=== PATIENT | male | born 1965 | race African-American/Black ===

== ENCOUNTER 2024-07-29 07:32 | Emergency (ER) | payer MEDICAID ==
[~2024-07-29] VITALS: Ht 185.4 cm; Wt 79.0 kg
[2024-07-29 08:50] LABS: Basophils # (auto) 0.1 10 ^3/uL (0-0.2); Basophils % (auto) 0.6 % (0.0-2.0); Eosinophils # (auto) 0.2 10 ^3/uL (0-0.8); Hematocrit 50.9 % (41.0-53.0); Lymphocytes # (auto) 1.8 10 ^3/uL (0.4-5.4); Mean Corpuscular Hemoglobin 29.5 pg (28.0-32.0); Mean Corpuscular Hgb Conc. 33.3 g/dL (32.0-36.0); Mean Corpuscular Volume 88.4 fL (80.0-100.0); Monocytes # (auto) 0.4 10 ^3/uL (0-1.3); Monocytes % (auto) 5.4 % (0.0-12.0); Neutrophils # (auto) 5.5 10 ^3/uL (1.6-8.6); Nucleated Red Blood Cells % 0.1 %; Platelet Count (auto) 127 10^3/uL (140-450); Red Blood Cells 5.75 10^6/uL (4.5-5.90); Red Cell Distribution Width 14.5 % (11.8-14.3)
[2024-07-29 09:07] LABS: BUN/Creatinine Ratio 13.1 (10.0-20.0); Blood Urea Nitrogen 23 mg/dL (9-23); Glucose 381 mg/dL (74-106)
[2024-07-29 09:08] LABS: Chloride 103 mmol/L (98-107); Potassium 5.5 mmol/L (3.5-5.1); Sodium 134 mmol/L (136-145)
[2024-07-29 09:11] LABS: Anion Gap 11 (5-15); Calcium 10.1 mg/dL (8.7-10.4); Carbon Dioxide 20 mmol/L (20-30)
[2024-07-29] MEDS: HYDROcodone-ACET 10/325MG TAB PO ONE (09:27)
[2024-07-29] MEDS: KETOROLAC TROMETH 60MG/2ML VIAL IM ONE (09:27)
[2024-07-29] MEDS: BACLOFEN 10 MG TAB PO ONE (09:28)
[2024-07-29] MEDS: SODIUM ZIRCONIUM CYCL 10 GM PAK PO ONE (11:30)
[2024-07-29] MEDS: ALBUTEROL SULF 2.5 MG/0.5ML(0.5%) NEB SOLN NEB ONE (11:30)
[2024-07-29] MEDS: SODIUM CHLORIDE 0.9% 500 ML IV ONE (11:45)
[2024-07-29] MEDS: FUROSEMIDE 20 MG/2 ML VIAL IV ONE (11:54)
[2024-07-29 12:12] VITALS: RESP 18; O2SAT 95
[2024-07-29 15:04] LABS: Chloride 101 mmol/L (98-107); Potassium 4.5 mmol/L (3.5-5.1); Sodium 135 mmol/L (136-145)
[2024-07-29 15:05] LABS: Anion Gap 11 (5-15); Calcium 10.1 mg/dL (8.7-10.4); Carbon Dioxide 23 mmol/L (20-30)
[2024-07-29 15:10] LABS: BUN/Creatinine Ratio 11.4 (10.0-20.0); Blood Urea Nitrogen 20 mg/dL (9-23); Glucose 327 mg/dL (74-106)
[2024-07-29] MEDS ORDERED: GLUC-105 VI (16:08)
[2024-07-29] MEDS ORDERED: HYDR1TAB97 PO (16:08)
[2024-07-29 16:16] VITALS: BP 146/94; PULSE 77; RESP 17; TEMP 98.9; O2SAT 98
== END 2024-07-29 16:18 | disposition home or self-care (01) ==
LOC: ER 07:32
DX: E87.5 Hyperkalemia (principal); N17.9 Acute kidney failure, unspecified; M54.6 Pain in thoracic spine; G89.29 Other chronic pain; Z79.899 Other long term (current) drug therapy
CPT/HCPCS: 36415; 71046; 80048; 83880; 84484; 85025; 94640; 96361; 96372; 96374; 99285; J1885; J1940; J7040

== ENCOUNTER 2025-07-10 10:00 | Emergency (ER) | payer MEDICAID, OTHER ==
[~2025-07-10] VITALS: Ht 185.4 cm; Wt 84.7 kg
[~2025-07-10 10:00] MED LIST: GLUC-105 VI; HYDR1TAB97 PO
[2025-07-10] MEDS ORDERED: IBUP1TAB5 PO (11:06)
[2025-07-10] MEDS ORDERED: CYCL-837 PO (11:06)
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
[2025-07-10 12:02] VITALS: BP 149/89; PULSE 87; RESP 16; TEMP 98.9; O2SAT 98
== END 2025-07-10 12:04 | disposition home or self-care (01) ==
LOC: ER 10:00
DX: M54.50 Low back pain, unspecified (principal); Z79.899 Other long term (current) drug therapy; V89.2XXA Person injured in unspecified motor-vehicle accident, traffic, initial encounter; Y93.89 Activity, other specified; Y92.488 Other paved roadways as the place of occurrence of the external cause; Y99.8 Other external cause status
CPT/HCPCS: 72100

== ENCOUNTER 2025-10-13 06:18 | Inpatient (IN) | payer MEDICAID ==
[~2025-10-13] VITALS: Ht 185.4 cm; Wt 85.3 kg
[~2025-10-13 06:18] MED LIST changes: +CYCL-837 PO; +IBUP1TAB5 PO
--- NOTE | 2025-10-13 06:36 | ED.PDOC ---
SOB-HPI HPI Comments This is a 60 year-old male, with a Hx of COPD and Asthma, who presents to the ED with a chief complaint of SOB for X2 weeks. Patient reports having a lobectomy done after his lungs collapsed from COVID-19. Patient denies any social history of smoking or ETOH ingestion. Patient has no further complaints at this time and otherwise denies further symptoms of dizziness, weakness, fatigue, back pain, chest pain, or palpitations. Chief Complaint: Shortness of Breath Time Seen by MD: 06:30 Reviewed notes: Medications, Allergies Information Source: Patient Mode of Arrival: Ambulatory Severity: Moderate Timing: Weeks Duration: Since onset Context: At Rest, With Light Exertion, With Heavy Exertion History of: Asthma, COPD Past Medical History PAST MEDICAL HISTORY: Asthma, COPD, DM Surgical History: Denies all surgeries Family History Family History: Reviewed,noncontributory to illness, No family hx of Cancer, No family hx of DM, No family hx of Heart giovanni, No family hx of HTN, No family hx ofKidney giovanni, No family hx of Liver giovanni, No family hx of Lung giovanni, No family hx of Stroke Social History Smoker: Non-Smoker Alcohol: Denies ETOH Use Drugs: Denies Drug Use Lives In: Home Constitutional: denies: chills, diaphoresis, fatigue, fever, malaise, sweats, weakness, others EENTM: denies: blurred vision, double vision, ear bleeding, ear discharge, ear drainage, ear pain, ear ringing, eye pain, eye redness, hearing loss, mouth pain, mouth swelling, nasal discharge, nose bleeding, nose congestion, nose pain, photophobia, tearing, throat pain, throat swelling, voice changes, others Respiratory: reports: SOB at rest, shortness of breath, SOB with excertion; denies: cough, hemoptysis, orthopnea, stridor, wheezing, others Cardiovascular: denies: chest pain, dizzy spells, diaphoresis, Dyspnea on exertion, edema, irregular heart beat, left arm pain, lightheadedness, palpitations, PND, syncope, others Gastrointestinal: denies: abdomen distended, abdominal pain, blood streaked bowels, constipated, diarrhea, dysphagia, difficulty swallowing, hematemesis, melena, nausea, poor appetite, poor fluid intake, rectal bleeding, rectal pain, vomiting, others Genitourinary: denies: burning, dysuria, flank pain, frequency, hematuria, incontinence, penile discharge, penile sore, pain, testicle pain, testicle swelling, urgency, others Neurological: denies: dizziness, fainting, headache, left sided numbness, left sided weakness, numbness, paresthesia, pre-existing deficit, right sided numbness, right sided weakness, seizure, speech problems, tingling, tremors, weakness, others Musculoskeletal: denies: back pain, gout, joint pain, joint swelling, muscle pain, muscle stiffness, neck pain, others Integumetry: denies: bruises, change in color, change in hair/nails, dryness, laceration, lesions, lumps, rash, wounds, others Allergic/Immunocompromised: denies: Difficulty Healing, Frequent Infections, Hives, Itching, others Hematologic/Lymphatic: denies: anemia, blood clots, easy bleeding, easy bruising, swollen glands, others Endocrine: denies: excessive hunger, excessive sweating, excessive thirst, excessive urination, flushing, intolerance to cold, intolerance to heat, unexplained weight gain, unexplained weight loss, others Psychiatric: denies: anxiety, bipolar disorder, depression, hopeless, panic disorder, schizophrenia, sleepless, suicidal, others All Other Systems: Reviewed and Negative Physical Exam General Appearance: Moderate Distress HEENT: Normal ENT Inspection, Pharynx Normal, TMs Normal Neck: Full Range of Motion, Non-Tender, Normal, Normal Inspection Respiratory: Chest Non-Tender, Lungs Clear, No Accessory Muscle Use, No Respiratory Distress, Normal Breath Sounds Cardiovascular: No Edema, No JVD, No Murmur, No Gallop, Normal Peripheral Pulses, Regular Rate/Rhythm Breast Exam: Deferred Gastrointestinal: No Organomegaly, Non Tender, No Pulsatile Mass, Normal Bowel Sounds, Soft Genitalia: Deferred Pelvic: Deferred Rectal: Deferred Extremities: No calf tenderness, Normal capillary refill, Normal inspection, Normal range of motion, Non-tender, No pedal edema Musculoskeletal : Apperance: Normal Neurologic: Alert, primary care pediatrician II-XII nml as Tested, No Motor Deficits, Normal Affect, Normal Mood, No Sensory Deficits Cerebellar Function: Normal Reflexes: Normal Skin: Dry, Normal Color, Warm Peripheral Pulses: 3+ Radial (R), 3+ Radial (L) Lymphatic: No Adenopathy Was a procedure done? Was a procedure done?: No Differential Dx Differential Diagnosis: Anxiety, Asthma, Bronchitis, COPD, Panic Attack, Sinusitis, Allergic Rhinitis X-Ray, Labs, Meds, VS Vital Signs Date Time Temp Pulse Resp B/P (MAP) Pulse Ox O2 Delivery O2 Flow Rate FiO2 10/13/25 08:53 97.8 70 16 151/105 (120) 98 97.8 10/13/25 06:19 97.8 70 20 139/93 97 97.8 Lab Test 10/13/25 06:46 Range/Units Sodium Level 145 136-145 mmol/L Potassium Level 5.3 H 3.5-5.1 mmol/L Chloride Level 109 H 98-107 mmol/L Carbon Dioxide Level 27 20-31 mmol/L Anion Gap 9 5-15 Blood Urea Nitrogen 27 H 9-23 mg/dL Creatinine 1.87 H 0.700-1.30 mg/dL Glomerular Filtration Rate Calc 40 >90 mL/min BUN/Creatinine Ratio 14.4 10.0-20.0 Serum Glucose 73 L 74-106 mg/dL Calcium Level 10.3 8.7-10.4 mg/dL Patient alert. Complaining of shortness a breath. No leg swelling. Vitals stable. Saturation pristine on room air. Heart rate within normal limits. No sign of any acute process. Possible pneumonitis. Potassium is elevated. Was given Rocephin. Was given azithromycin. Was given clonidine. Explained to the patient. Continue monitoring. Time of 1ST Reevaluation: 07:27 Reevaluation 1ST: Unchanged Patient Education/Counseling: Diagnosis, Treatment Family Education/Counseling: No Family Present SEPSIS Sepsis Screen Date sepsis recognized/suspect: Oct 13, 2025 Time Sepsis recognized/suspect: 619 Recent Procedure: No On Antibiotic Therapy: No Respiratory Rate >20: No Heart Rate >90: No Temp<36 C (96.8 F) or >38.3 C: No SBP <90 or MAP <65 mmHG: No New Acute Mental Status Change: No Is the patient on CPAP, BIPAP,: No Physician Orders Chest Portable (10/13/25 06:31) Vital Signs Date Time Temp Pulse Resp B/P (MAP) Pulse Ox O2 Delivery O2 Flow Rate FiO2 10/13/25 08:53 97.8 70 16 151/105 (120) 98 97.8 10/13/25 06:19 97.8 70 20 139/93 97 97.8 Departure 1 Departure Time of Disposition: 06:38 Impression: Primary Impression: Hyperkalemia Additional Impressions: Pneumonitis Hypertensive urgency Disposition: ADMITTED INPATIENT Admit to: Med Surg Condition: Guarded Critical Care Note Critical Care Time?: Yes (90 min-critical care time only) Stability Stability form required: No Heart Score Heart Score: Heart Score Response (Comments) Value History Slightly Suspicious 0 EKG N/A 0 Age 45-64 1 Risk Factors 1 or 2 risk factors 1 Troponin N/A 0 Total 2 I personally scribed for BIB MACHADO MD ([email or web address]) on 10/13/25 at 06:36. Electronically submitted by Roxane Leone ([facility]). BIB MACHADO MD Oct 13, 2025 06:36
[2025-10-13 07:11] LABS: Anion Gap 9 (5-15); Calcium 10.3 mg/dL (8.7-10.4); Carbon Dioxide 27 mmol/L (20-31)
[2025-10-13 07:12] LABS: Chloride 109 mmol/L (98-107); Potassium 5.3 mmol/L (3.5-5.1); Sodium 145 mmol/L (136-145)
[2025-10-13 07:16] LABS: BUN/Creatinine Ratio 14.4 (10.0-20.0)
--- NOTE | 2025-10-13 07:18 | DVH ---
CHEST RADIOGRAPH Indication: sob Technique: Single frontal view of the chest was obtained COMPARISON: XY CHEST TWO VIEWS ROUTINE on DOS: 07/29/24 FINDINGS: Lines and Tubes: None Lungs: Increased interstitial prominence. This may represent pulmonary vascular congestion and/or viral pneumonia. Pleura: No effusion.No pneumothorax. Cardiomediastinal contours: Unremarkable Bones: Unremarkable IMPRESSION: Increased interstitial prominence. This may represent pulmonary vascular congestion and/or viral pneumonia.
[2025-10-13 07:19] LABS: Blood Urea Nitrogen 27 mg/dL (9-23); Glucose 73 mg/dL (74-106)
[2025-10-13 08:53] VITALS: BP 151/105; PULSE 70; TEMP 97.8
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
[2025-10-13] MEDS ORDERED: NITROGLYCERIN 0.4 MG SL TAB SL PRN (09:30)
[2025-10-13] MEDS ORDERED: DEXTROSE (50%) 50ML SYRG IV ONE (09:30)
[2025-10-13] MEDS ORDERED: CALCIUM GLUC 1,000mg/50ml-NS 50 ML IV ONE ×2 (09:30)
[2025-10-13] MEDS ORDERED: SODIUM BICARB 8.4% 50Meq/50ml SYR INJ IV ONE (09:30)
[2025-10-13] MEDS ORDERED: ACETAMINOPHEN 325 MG TAB PO PRN (09:30)
[2025-10-13] MEDS ORDERED: FUROSEMIDE 20 MG/2 ML VIAL IV ONE (09:30)
[2025-10-13] MEDS ORDERED: AZITHROMYCIN 500MG/250ML 250 ML IV ONE ×2 (09:30)
[2025-10-13] MEDS ORDERED: methylPREDNISolone SOD SUCC 40 MG/ML VL IV ONE (09:30)
[2025-10-13] MEDS ORDERED: ONDANSETRON HCL 4 MG/2 ML VIAL IV PRN (09:30)
[2025-10-13] MEDS ORDERED: MORPHINE SULFATE INJ 2 MG/ml SYRG IV PRN ×2 (09:30)
[2025-10-13] MEDS ORDERED: ALBUTEROL SULF 2.5 MG/0.5ML(0.5%) NEB SOLN NEB ONE (09:30)
[2025-10-13] MEDS ORDERED: InsuLIN REG 1unit/0.01ml Soln (100units/ml) IV ONE (09:30)
[2025-10-13] MEDS ORDERED: SODIUM ZIRCONIUM CYCL 10 GM PAK PO ONE ×2 (09:30)
[2025-10-13] MEDS ORDERED: ALBUTEROL SULF 2.5 MG/0.5ML(0.5%) NEB SOLN ONE (09:35)
[2025-10-13 09:41] LABS: Hematocrit 49.8 % (41.0-53.0); Hemoglobin 16.3 g/dL (13.5-17.5); Mean Corpuscular Hemoglobin 29.2 pg (28.0-32.0); Mean Corpuscular Volume 88.8 fL (80.0-100.0); Nucleated Red Blood Cells % 0.1 %
[2025-10-13] MEDS: ALBUTEROL SULF 2.5 MG/0.5ML(0.5%) NEB SOLN NEB ONE (09:41)
[2025-10-13 09:48] LABS: Magnesium 2.0 mg/dL (1.6-2.6); Triglycerides 135.0 mg/dL (< 150)
[2025-10-13 09:50] LABS: Cholesterol 169.0 mg/dL (< 200)
[2025-10-13 09:51] LABS: HDL Cholesterol 40.0 mg/dL (40-59)
[2025-10-13] MEDS ORDERED: SODIUM CHLORIDE 0.9% 1,000 ML IV SCH (10:00)
[2025-10-13] MEDS ORDERED: DEXTROSE (50%) 50ML SYRG IV PRN (10:00)
[2025-10-13] MEDS ORDERED: SODIUM CHLORIDE 0.9% 500 ML IV ONE (10:00)
[2025-10-13 10:01] LABS: INR 1.0 (0.9-1.15); Partial Thromboplastin Time 29.5 SEC (24.5-34.5); Prothrombin Time 10.6 sec (9.3-11.8)
[2025-10-13 10:02] VITALS: RESP 18; O2SAT 100
--- NOTE | 2025-10-13 10:21 | DVH ---
CLINICAL HISTORY: BLANK TECHNIQUE: Complete ultrasound exam of the kidneys and bladder was performed. COMPARISON: None FINDINGS: The right kidney has normal echogenicity and measures 9.2 cm. There is no focal parenchymal abnormality or evidence for stone. There is no hydronephrosis. The left kidney has normal echogenicity and measures 11.6 cm. There is no focal parenchymal abnormality or evidence for stone. There is no hydronephrosis. The bladder is grossly unremarkable. IMPRESSION: NO SIGNIFICANT SONOGRAPHIC ABNORMALITY OF THE KIDNEYS.
[2025-10-13 10:30] LABS: Potassium 4.7 mmol/L (3.5-5.1); Sodium 142 mmol/L (136-145)
[2025-10-13 10:31] LABS: Anion Gap 8 (5-15); Calcium 9.7 mg/dL (8.7-10.4); Carbon Dioxide 26 mmol/L (20-31)
[2025-10-13 10:35] LABS: Chloride 108 mmol/L (98-107)
[2025-10-13 10:36] LABS: BUN/Creatinine Ratio 14.7 (10.0-20.0); Blood Urea Nitrogen 24 mg/dL (9-23); Glucose 78 mg/dL (74-106)
[2025-10-13] MEDS ORDERED: ACCU-CHEK COMFORT CURVE STRIP VI SCH (11:30)
[2025-10-13] MEDS ORDERED: InsuLIN REG 1unit/0.01ml Soln (100units/ml) SC SCH (11:30)
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
[2025-10-13] MEDS ORDERED: methylPREDNISolone SOD SUCC 40 MG/ML VL IV SCH (22:00)
[2025-10-14] MEDS ORDERED: AZITHROMYCIN 500MG/250ML 250 ML IV SCH (10:00)
== END 2025-10-13 11:28 | disposition left against medical advice (07) | DRG 139 ==
LOC: ER 06:18 → OVERFLOW 09:17
PROVIDERS: ADMIT Student in an Organized Health Care Education/Training Program; ATTEND Emergency Medicine
DX: J12.9 Viral pneumonia, unspecified (principal); N17.0 Acute kidney failure with tubular necrosis; J44.0 Chronic obstructive pulmonary disease with (acute) lower respiratory infection; E11.9 Type 2 diabetes mellitus without complications; N18.9 Chronic kidney disease, unspecified; E87.5 Hyperkalemia; E78.5 Hyperlipidemia, unspecified; J44.1 Chronic obstructive pulmonary disease with (acute) exacerbation; Z53.29 Procedure and treatment not carried out because of patient's decision for other reasons; Z79.899 Other long term (current) drug therapy
CPT/HCPCS: 36415; 71045; 76775; 80048; 80061; 82306; 82607; 83036; 83605; 83735; 84100; 84443; 84484; 85025; 85610; 85730; 94640; 99291; 99292; G0378